=== PATIENT | male | born 1995 | race Caucasian/White ===

== ENCOUNTER 2024-01-19 08:51 | Inpatient (IN) | payer MEDICAID ==
[~2024-01-19] VITALS: Ht 180.3 cm; Wt 107.7 kg
[2024-01-19 09:24] LABS: BASOPHILS % (AUTO) 1.2 % (0.0-2.0); EOSINOPHILS % (AUTO) 10.6 % (1.0-6.0); HEMATOCRIT 45.6 % (41-53); HEMOGLOBIN 15.5 g/dL (13.5-17.5); LYMPHOCYTES # (AUTO) 1.8 K/uL (1.0-4.8); LYMPHOCYTES % (AUTO) 26.6 % (22.0-44.0); MEAN CORPUSCULAR HEMOGLOBIN 29.8 pg (26.0-34.0); MEAN CORPUSCULAR VOLUME 88 fL (80-100); MONOCYTES # (AUTO) 0.6 K/uL (0.1-1.0); MONOCYTES % (AUTO) 8.4 % (2.0-9.0); NEUTROPHILS # (AUTO) 3.6 K/uL (1.8-7.7); NEUTROPHILS % (AUTO) 53.2 % (40.0-70.0); PLATELET COUNT (AUTO) 246 K/uL (150-450); RED BLOOD CELL COUNT(AUTO) 5.19 MIL/uL (4.50-5.90); RED CELL DISTRIBUTION WIDTH 13.2 % (11.5-14.5); WHITE BLOOD COUNT (AUTO) 6.8 K/uL (4.5-11.0)
[2024-01-19 09:36] LABS: ANION GAP 9 mmol/L (8-16); CALCIUM, TOTAL 9.2 mg/dL (8.8-10.5); CARBON DIOXIDE 29 mmol/L (22-29); CHLORIDE 103 mmol/L (98-107); CREATININE 1.25 mg/dL (0.60-1.30); GLOMERULAR FILTR. RATE CALC > 60 mL/min (>60); GLUCOSE,RANDOM 102 mg/dL (70-110); POTASSIUM 4.3 mmol/L (3.5-5.1); SODIUM SERUM 141 mmol/L (136-145); UREA NITROGEN, BLOOD 17 mg/dL (7-18)
[2024-01-19 09:37] LABS: ALCOHOL, BLOOD (SERUM) < 3 mg/dL (0-10)
[2024-01-19 09:42] LABS: ALANINE AMINOTRANSFERASE 45 U/L (12-78); ALKALINE PHOSPHATASE 69 U/L (46-116); BILIRUBIN,TOTAL 0.5 mg/dL (0.1-1.0); TOTAL PROTEIN, SERUM 8.1 g/dL (6.4-8.2)
[2024-01-19] MEDS ORDERED: ARIP10TA38 PO (09:45)
[2024-01-19] MEDS ORDERED: RISP4TAB94 PO (09:45)
[2024-01-19] MEDS ORDERED: NALT50TA33 PO (09:45)
[2024-01-19] MEDS ORDERED: ESCI20TA87 PO (09:45)
[2024-01-19 09:51] LABS: ASPARTATE AMINOTRANSFERASE 18 U/L (15-37)
[2024-01-19 10:02] LABS: COVID AG,FIA SOURCE NASAL SWAB
[2024-01-19 10:07] LABS: PH,URINE DRUG SCREEN 5.5 (5.0-8.0)
[2024-01-19 10:14] LABS: ALCOHOL, URINE DRUG SCREEN NEGATIVE (NEGATIVE); AMPHET/METH SCREEN,URINE NEGATIVE (NEGATIVE); BARBITURATE SCREEN, URINE NEGATIVE (NEGATIVE); BENZODIAZEPINES SCREEN,URINE NEGATIVE (NEGATIVE); CANNABINOID SCREEN,URINE NEGATIVE (NEGATIVE); COCAINE SCREEN,URINE NEGATIVE (NEGATIVE); METHADONE SCREEN, URINE NEGATIVE (NEGATIVE); OPIATE SCREEN,URINE NEGATIVE (NEGATIVE); PHENCYCLIDINE SCREEN,URINE NEGATIVE (NEGATIVE)
[2024-01-19 10:26] LABS: SARS-COV2 (COVID) ANTIGEN,FIA Negative (Negative)
[2024-01-19] MEDS ORDERED: HALOPERIDOL 5 MG TABLET PO PRN (10:45)
[2024-01-19 12:02] LABS: APPEARANCE,URINE HAZY (CLEAR); BILIRUBIN,URINE NEGATIVE (NEGATIVE); COLOR,URINE LIGHT YELLOW (YELLOW); GLUCOSE, URINE (UA) NEGATIVE (NEGATIVE); KETONES,URINE NEGATIVE (NEGATIVE); LEUKOCYTE ESTERASE ,URINE NEGATIVE (NEGATIVE); NITRATE,URINE NEGATIVE (NEGATIVE); OCCULT BLOOD,URINE NEGATIVE (NEGATIVE); PH,URINE 5.5 (5.0-8.0); PROTEIN,URINE NEGATIVE (NEGATIVE); SPECIFIC GRAVITIY, URINE 1.027 (1.003-1.030); UROBILINOGEN,URINE <=1.0 mg/dL (<=1.0)
[2024-01-19] MEDS ORDERED: PETROLATUM,WHITE 28 GM JELLY TP PRN (15:15)
[2024-01-19] MEDS ORDERED: ONDANSETRON HCL 4 MG TABLET PO PRN (15:15)
[2024-01-19] MEDS ORDERED: CloNIDine HCL 0.1 MG TABLET PO PRN (15:15)
[2024-01-19] MEDS ORDERED: GuaiFENesin/D-METHORPHAN [SUGAR-FREE] 200-20MG/10 ML SYRUP UDCUP PO PRN (15:15)
[2024-01-19] MEDS ORDERED: MAG HYDROX/ALUMINUM HYD/SIMETH ES 30 ML SUSPENSION UDCUP PO PRN (15:15)
[2024-01-19] MEDS ORDERED: ALBUTEROL SULFATE HFA 90 MCG/PUFF 8 GM INHALER IH PRN (15:15)
[2024-01-19] MEDS ORDERED: NICOTINE 14 MG/24 HOUR PATCH TD PRN (15:15)
[2024-01-19] MEDS ORDERED: LOPERAMIDE HCL 2 MG CAPSULE PO PRN (15:15)
[2024-01-19] MEDS ORDERED: ACETAMINOPHEN 325 MG TABLET PO PRN (15:15)
[2024-01-19] MEDS ORDERED: ARIP30TA PO (15:21)
[2024-01-19] MEDS: INFLUENZA VIRUS VACCINE QVS 2023-24 (6MO+)/PF 60 MCG/0.5 ML SYRINGE IM. ONE (16:40)
[2024-01-19 16:42] VITALS: BP 111/64; PULSE 63; RESP 17; TEMP 97.5
[2024-01-19 16:44] VITALS: BP 111/64; PULSE 63; RESP 17; TEMP 97.5; O2SAT 98
[2024-01-19 20:14] VITALS: BP 120/68; PULSE 80; RESP 18; TEMP 97.6; O2SAT 99
[2024-01-19] MEDS: ZOLPIDEM TARTRATE 10 MG TABLET PO PRN (23:39)
[2024-01-20 09:02] LABS: CHOL/HDL RATIO 4.1 (4.2-7.3); CHOLESTEROL 199 mg/dL (131-200); HDL CHOLESTEROL 49 mg/dL (40-60); LDL CHOL (CALC.) 109 mg/dL (0-130); THYROID STIMULATING HORMONE 1.07 uIU/mL (0.36-3.74); TRIGLYCERIDES 206 mg/dL (15-150)
[2024-01-20 09:17] LABS: HEMOGLOBIN A1C 5.7 % (3.8-5.6)
[2024-01-20 10:43] VITALS: BP 113/70; PULSE 85; RESP 18; TEMP 97.7; O2SAT 96
[2024-01-20 20:17] VITALS: BP 100/70; PULSE 81; RESP 16; TEMP 97.9; O2SAT 96
[2024-01-21] MEDS: ESCITALOPRAM OXALATE 20 MG TABLET PO SCH (08:22)
[2024-01-21] MEDS: ARIPiprazole 15 MG TABLET PO SCH (08:22)
[2024-01-21] MEDS: NALTREXONE HCL 50 MG TABLET PO SCH (08:22)
[2024-01-21 09:00] VITALS: BP 117/88; RESP 18; TEMP 97.7; O2SAT 97
[2024-01-21] MEDS: RisperiDONE 0.5 MG TABLET PO SCH (20:35)
[2024-01-21 22:06] VITALS: BP 118/68; PULSE 72; RESP 18; TEMP 97.5; O2SAT 97
[2024-01-22 17:21] VITALS: RESP 17
[2024-01-22 20:14] VITALS: BP 101/51; PULSE 54; RESP 21; TEMP 97.6; O2SAT 100
[2024-01-22] MEDS: LORazepam 2 MG TABLET PO PRN (21:48)
[2024-01-23 09:17] VITALS: BP 130/77; PULSE 90; RESP 18; TEMP 98; O2SAT 97
[2024-01-23 21:08] VITALS: BP 133/71; PULSE 85; RESP 16; TEMP 98.2; O2SAT 98
[2024-01-24 08:36] VITALS: BP 139/72; PULSE 71; RESP 18; TEMP 97.9; O2SAT 97
[2024-01-24 20:15] VITALS: BP 141/78; PULSE 77; RESP 20; TEMP 98.1; O2SAT 96
[2024-01-25 08:20] VITALS: BP 122/76; PULSE 78; RESP 18; TEMP 97.6; O2SAT 97
[2024-01-25 20:00] VITALS: BP 103/60; PULSE 95; RESP 18; TEMP 97.6; O2SAT 96
[2024-01-26] MEDS: IBUPROFEN 400 MG TABLET PO PRN (00:40)
[2024-01-26 08:18] VITALS: BP 123/83; PULSE 81; RESP 19; TEMP 97.6; O2SAT 98
[2024-01-26 20:17] VITALS: BP 101/57; PULSE 91; RESP 21; TEMP 97.7; O2SAT 100
[2024-01-27 14:44] VITALS: BP 105/56; PULSE 74; RESP 20; TEMP 96.6; O2SAT 97
[2024-01-27 20:00] VITALS: BP 102/65; PULSE 86; RESP 18; TEMP 97.4; O2SAT 96
[2024-01-28 08:45] VITALS: BP 120/69; PULSE 91; RESP 18; TEMP 96.9; O2SAT 96
[2024-01-28 22:19] VITALS: BP 133/66; PULSE 73; RESP 18; TEMP 98; O2SAT 96
[2024-01-29 09:26] VITALS: BP 118/66; PULSE 87; RESP 20; TEMP 96.9; O2SAT 100
[2024-01-29 20:59] VITALS: BP 107/58; PULSE 74; RESP 17; TEMP 97.1; O2SAT 95
[2024-01-30 08:24] VITALS: BP 122/79; PULSE 86; RESP 18; TEMP 97.8; O2SAT 95
[2024-01-30 20:15] VITALS: BP 119/75; PULSE 85; RESP 18; TEMP 97.8; O2SAT 98
[2024-01-31 08:49] VITALS: BP 121/72; PULSE 96; RESP 18; TEMP 97.8; O2SAT 96
[2024-01-31 20:48] VITALS: BP 119/61; PULSE 70; RESP 18; TEMP 97.4; O2SAT 96
[2024-02-01] MEDS: DOCUSATE SODIUM 100 MG CAPSULE PO PRN (09:47)
[2024-02-01 10:21] VITALS: BP 148/91; PULSE 62; RESP 17; TEMP 97.6; O2SAT 98
[2024-02-01 21:47] VITALS: BP 123/51; PULSE 60; RESP 18; TEMP 97.5; O2SAT 94
[2024-02-02 09:16] VITALS: BP 150/70; PULSE 80; RESP 18; TEMP 98; O2SAT 100
[2024-02-02 21:17] VITALS: BP 115/72; PULSE 97; RESP 18; TEMP 97.9; O2SAT 97
[2024-02-03 08:09] VITALS: BP 121/71; PULSE 86; RESP 18; TEMP 97.6; O2SAT 97
[2024-02-03 22:23] VITALS: BP 112/66; PULSE 74; RESP 18; TEMP 97.7; O2SAT 97
[2024-02-04 08:22] VITALS: BP 130/86; PULSE 100; RESP 17; TEMP 98; O2SAT 97
[2024-02-04 20:19] VITALS: BP 136/87; PULSE 85; RESP 17; TEMP 97.6; O2SAT 97
[2024-02-05] MEDS: MAGNESIUM HYDROXIDE SUSPENSION 30 ML UDCUP PO PRN (08:38)
[2024-02-05 08:55] VITALS: BP 119/72; PULSE 82; RESP 17; TEMP 97.5; O2SAT 98
[2024-02-05 20:07] VITALS: BP 113/67; PULSE 95; RESP 20; TEMP 97.8; O2SAT 97
[2024-02-05] MEDS: BENZOCAINE/MENTHOL/ZINC CL 20% 11.9 GM GEL TP PRN (20:23)
[2024-02-06 15:49] VITALS: BP 125/71; PULSE 88; RESP 18; TEMP 97.2; O2SAT 98
[2024-02-06 20:30] VITALS: BP 120/51; PULSE 65; RESP 20; TEMP 97.9; O2SAT 96
[2024-02-07 10:35] VITALS: BP 116/61; PULSE 91; RESP 18; TEMP 97.7; O2SAT 98
[2024-02-07] MEDS ORDERED: RISP0.5T39 PO (12:36)
[2024-02-07] MEDS ORDERED: ESCI20TA87 PO (12:36)
[2024-02-07] MEDS ORDERED: ARIP15TA27 PO (12:36)
[2024-02-07] MEDS ORDERED: NALT50TA33 PO (12:36)
== END 2024-02-07 18:00 | disposition home or self-care (01) | DRG 750 ==
LOC: EMS 09:07 → B2S 12:40
PROVIDERS: ADMIT Psychiatry & Neurology Child & Adolescent Psychiatry; ATTEND Psychiatry & Neurology Child & Adolescent Psychiatry
PROC: GZHZZZZ Group Psychotherapy (ICD-10-PCS; principal; 2024-02-02)
PROC: GZ51ZZZ Individual Psychotherapy, Behavioral (ICD-10-PCS; 2024-02-02)
DX: F25.1 Schizoaffective disorder, depressive type (principal); E66.3 Overweight; Z20.822 Contact with and (suspected) exposure to COVID-19; F41.9 Anxiety disorder, unspecified; Z68.33 Body mass index [BMI] 33.0-33.9, adult
CPT/HCPCS: 80053; 80061; 80307; 81003; 83036; 84443; 85025; 99285; G0480